=== PATIENT | male | born 1940 | race Caucasian/White ===

== ENCOUNTER → 2016-08-08 | Outpatient (CLI) | payer BC ==
[~2016-08-08] MED LIST: ADVINUNK INH; ALBUAER2 INH; AMLO2.5T PO; ASPEC81 PO; ATOR-22 PO; CLOP1TAB15 PO; DVN80 PO; ESCI1TAB10 PO; PRLSR20 PO
== END | disposition home or self-care (01) ==
LOC: C.LABMFLN 11:47
PROVIDERS: ATTEND Family Medicine
DX: R05 Cough (principal)

== ENCOUNTER → 2016-08-22 | Outpatient (CLI) | payer BC ==
[2016-08-22 13:39] LABS: ALT/SGPT 10 U/L (12-78); BLOOD UREA NITROGEN 25 mg/dl (7-18); BUN/CREATININE RATIO 15.4 (10-20); CALCIUM 8.5 mg/dl (8.5-10.1); CARBON DIOXIDE 30 mmol/L (21-32); CHLORIDE 107 mmol/L (98-107); GLUCOSE 89 mg/dl (70-99); POTASSIUM 4.1 mmol/L (3.5-5.1); SODIUM 144 mmol/L (136-145); URIC ACID 4.9 mg/dl (2.6-7.2)
[2016-08-22 13:42] LABS: CHOLESTEROL 111 mg/dl (0-200); CHOLESTEROL/HDL RATIO 2.5; HDL CHOLESTEROL 45 mg/dl; LDL CHOLESTEROL CALCULATED 55 mg/dl; TRIGLYCERIDES 53 mg/dl (0-150); VERY LOW DENSITY LIPOPROT CALC 11 mg/dl
== END | disposition home or self-care (01) ==
LOC: C.LABMFLN 08:30
PROVIDERS: ATTEND Family Medicine
DX: M79.89 Other specified soft tissue disorders (principal); E78.00 Pure hypercholesterolemia, unspecified; I12.9 Hypertensive chronic kidney disease with stage 1 through stage 4 chronic kidney disease, or unspecified chronic kidney disease; N18.3 Chronic kidney disease, stage 3 (moderate)

== ENCOUNTER → 2016-10-10 | Outpatient (CLI) | payer BC ==
[2016-10-10 13:24] LABS: BASO % 0.3 %; BASO ABS # 0.02 K/uL (0-0.2); COMPLETE YES; EOS % 3.1 %; HEMATOCRIT 32.7 % (42-52); IG% 0.3 %; LYMPH % 18.1 %; LYMPH ABS # 1.34 K/uL (1.2-3.4); MEAN CELL VOLUME 97.6 fL (80-100); MEAN CORPUSCULAR HEMOGLOBIN 31.6 pg (25-34); MEAN CORPUSCULAR HGB CONC 32.4 g/dl (32-36); MEAN PLATELET VOLUME 10.6 fL (7.4-10.4); MONO % 9.7 %; NEUT % 68.5 %; PLATELET COUNT 190 K/uL (130-400); RED BLOOD COUNT 3.35 M/uL (4.7-6.1); WHITE BLOOD COUNT 7.39 K/uL (4.8-10.8)
[2016-10-10 13:25] LABS: TOTAL IRON BINDING CAPACITY 179 mcg/dl (250-450)
--- NOTE | 2016-10-15 12:59 | CODING QUERY MEDICAL NECESSITY ---
SUPPORTING DIAGNOSIS NEEDED A supporting diagnosis is required for the test/procedure performed on this patient in order for us to be reimbursed by the patient's insurance. Please provide a supporting diagnosis for the following test/procedure listed below next to the test name along with your signature. *If there is no additional diagnosis for this patient that would support the following test/procedure please document that below next to the test/procedure. Test(s)/Procedure(s) that require a supporting diagnosis: DOS 10/10 * Vitamin B12 DIAGNOSIS: Provider Signature: Date: Thank you Ariana Jones [facility] Information Management Once completed, please kindly fax back to [phone] For questions please call [phone]
== END | disposition home or self-care (01) ==
LOC: C.LABMFLN 09:31
PROVIDERS: ATTEND Family Medicine
DX: D64.9 Anemia, unspecified (principal); E53.8 Deficiency of other specified B group vitamins

== ENCOUNTER → 2016-12-25 | Outpatient (CLI) | payer BC ==
[2016-12-25 18:16] LABS: HEMATOCRIT 33.2 % (42-52)
[2016-12-25 19:16] LABS: ALT/SGPT 13 U/L (12-78); BLOOD UREA NITROGEN 22 mg/dl (7-18); BUN/CREATININE RATIO 13.9 (10-20); CARBON DIOXIDE 28 mmol/L (21-32); CHLORIDE 107 mmol/L (98-107); GLUCOSE 89 mg/dl (70-99); POTASSIUM 4.6 mmol/L (3.5-5.1); SODIUM 144 mmol/L (136-145)
[2016-12-25 19:26] LABS: ALB/GLOB RATIO 0.8 (0.9-2); ALKALINE PHOSPHATASE 74 U/L (45-117); AST/SGOT 11 U/L (15-37); THYROID STIMULATING HORMONE 0.985 uIu/ml (0.300-4.500)
[2016-12-25 19:39] LABS: CALCIUM 8.5 mg/dl (8.5-10.1)
== END | disposition home or self-care (01) ==
LOC: C.LABMFLN 14:57
PROVIDERS: ATTEND Family Medicine
DX: I12.9 Hypertensive chronic kidney disease with stage 1 through stage 4 chronic kidney disease, or unspecified chronic kidney disease (principal); N18.3 Chronic kidney disease, stage 3 (moderate); R60.9 Edema, unspecified; I50.9 Heart failure, unspecified; D64.9 Anemia, unspecified

== ENCOUNTER → 2017-01-14 | Outpatient (CLI) | payer BC ==
[2017-01-14 15:17] LABS: BLOOD UREA NITROGEN 42 mg/dl (7-18); BUN/CREATININE RATIO 20.1 (10-20); CARBON DIOXIDE 27 mmol/L (21-32); CHLORIDE 109 mmol/L (98-107); GLUCOSE 97 mg/dl (70-99); POTASSIUM 4.4 mmol/L (3.5-5.1); SODIUM 144 mmol/L (136-145)
== END | disposition home or self-care (01) ==
LOC: C.LABMFLN 10:01
PROVIDERS: ATTEND Family Medicine
DX: I50.9 Heart failure, unspecified (principal)

== ENCOUNTER → 2017-03-13 | Outpatient (CLI) | payer BC ==
[2017-03-13 18:34] LABS: BASO % 0.2 %; BASO ABS # 0.01 K/uL (0-0.2); COMPLETE YES; EOS % 7.2 %; HEMATOCRIT 30.2 % (42-52); IG% 0.2 %; LYMPH % 19.1 %; LYMPH ABS # 1.15 K/uL (1.2-3.4); MEAN CELL VOLUME 97.1 fL (80-100); MEAN CORPUSCULAR HEMOGLOBIN 32.5 pg (25-34); MEAN CORPUSCULAR HGB CONC 33.4 g/dl (32-36); MEAN PLATELET VOLUME 10.6 fL (7.4-10.4); MONO % 6.7 %; NEUT % 66.6 %; PLATELET COUNT 157 K/uL (130-400); RED BLOOD COUNT 3.11 M/uL (4.7-6.1); WHITE BLOOD COUNT 6.01 K/uL (4.8-10.8)
[2017-03-13 19:34] LABS: BLOOD UREA NITROGEN 149 mg/dl (7-18); BUN/CREATININE RATIO 32.4 (10-20); CALCIUM 8.6 mg/dl (8.5-10.1); CARBON DIOXIDE 23 mmol/L (21-32); CHLORIDE 107 mmol/L (98-107); GLUCOSE 122 mg/dl (70-99); POTASSIUM 5.5 mmol/L (3.5-5.1); SODIUM 137 mmol/L (136-145)
--- NOTE | 2017-03-17 12:31 | CODING QUERY MEDICAL NECESSITY ---
CQSUPPORTING DIAGNOSIS NEEDED A supporting diagnosis is required for the test/procedure performed on this patient in order for us to be reimbursed by the patient's insurance. Please provide a supporting diagnosis for the following test/procedure listed below next to the test name along with your signature. *If there is no additional diagnosis for this patient that would support the following test/procedure please document that below next to the test/procedure. Test(s)/Procedure(s) that require a supporting diagnosis: DOS 03/13/17 VITAMIN D TEST Provider Signature: Date: Thank you Shannon Benítez [facility] Information Management Once completed, please kindly fax back to [phone] For questions please call [phone]
== END | disposition home or self-care (01) ==
LOC: C.LABMFLN 15:21
PROVIDERS: ATTEND Family Medicine
DX: I10 Essential (primary) hypertension (principal); D64.9 Anemia, unspecified; Z86.79 Personal history of other diseases of the circulatory system; E03.8 Other specified hypothyroidism; R53.83 Other fatigue; E55.9 Vitamin D deficiency, unspecified

== ENCOUNTER → 2017-03-20 | Outpatient (CLI) | payer BC ==
[2017-03-20 18:16] LABS: MEAN CELL VOLUME 97.4 fL (80-100); MEAN CORPUSCULAR HGB CONC 33.8 g/dl (32-36); MEAN PLATELET VOLUME 10.7 fL (7.4-10.4); PLATELET COUNT 127 K/uL (130-400); RED BLOOD COUNT 2.67 M/uL (4.7-6.1); WHITE BLOOD COUNT 5.27 K/uL (4.8-10.8)
[2017-03-20 18:36] LABS: BLOOD UREA NITROGEN 74 mg/dl (7-18); BUN/CREATININE RATIO 27.3 (10-20); CALCIUM 8.6 mg/dl (8.5-10.1); CARBON DIOXIDE 22 mmol/L (21-32); CHLORIDE 115 mmol/L (98-107); GLUCOSE 116 mg/dl (70-99); SODIUM 143 mmol/L (136-145)
== END | disposition home or self-care (01) ==
LOC: C.LABMFLN 14:27
PROVIDERS: ATTEND Family Medicine
DX: N18.4 Chronic kidney disease, stage 4 (severe) (principal); D64.9 Anemia, unspecified

== ENCOUNTER → 2017-06-23 | Outpatient (CLI) | payer BC ==
[2017-06-23 18:30] LABS: HEMATOCRIT 34.7 % (42-52); MEAN CELL VOLUME 100.9 fL (80-100); MEAN CORPUSCULAR HEMOGLOBIN 31.7 pg (25-34); MEAN CORPUSCULAR HGB CONC 31.4 g/dl (32-36); MEAN PLATELET VOLUME 10.9 fL (7.4-10.4); PLATELET COUNT 223 K/uL (130-400); RED BLOOD COUNT 3.44 M/uL (4.7-6.1); WHITE BLOOD COUNT 6.68 K/uL (4.8-10.8)
[2017-06-23 18:34] LABS: ALT/SGPT 7 U/L (12-78); BLOOD UREA NITROGEN 37 mg/dl (7-18); BUN/CREATININE RATIO 14.2 (10-20); CALCIUM 9.6 mg/dl (8.5-10.1); CARBON DIOXIDE 28 mmol/L (21-32); CHLORIDE 103 mmol/L (98-107); CHOLESTEROL 136 mg/dl (0-200); CHOLESTEROL/HDL RATIO 3.2; CREATININE 2.58 mg/dl (0.60-1.40); GLUCOSE 116 mg/dl (70-99); HDL CHOLESTEROL 42 mg/dl; LDL CHOLESTEROL CALCULATED 75 mg/dl; POTASSIUM 4.8 mmol/L (3.5-5.1); SODIUM 140 mmol/L (136-145); TRIGLYCERIDES 96 mg/dl (0-150); URIC ACID 6.6 mg/dl (2.6-7.2); VERY LOW DENSITY LIPOPROT CALC 19 mg/dl
== END | disposition home or self-care (01) ==
LOC: C.LABMFLN 15:56
PROVIDERS: ATTEND Family Medicine
DX: D50.9 Iron deficiency anemia, unspecified (principal); E87.0 Hyperosmolality and hypernatremia; M10.9 Gout, unspecified; E78.00 Pure hypercholesterolemia, unspecified

== ENCOUNTER → 2017-07-08 | Outpatient (CLI) | payer BC ==
[2017-07-08 18:25] LABS: BASO % 0.3 %; BASO ABS # 0.02 K/uL (0-0.2); COMPLETE YES; EOS % 2.2 %; HEMATOCRIT 35.3 % (42-52); IG% 0.4 %; LYMPH ABS # 1.47 K/uL (1.2-3.4); MEAN CELL VOLUME 100.6 fL (80-100); MEAN CORPUSCULAR HGB CONC 32.9 g/dl (32-36); MEAN PLATELET VOLUME 10.8 fL (7.4-10.4); MONO % 9.2 %; NEUT % 68.9 %; PLATELET COUNT 250 K/uL (130-400); RED BLOOD COUNT 3.51 M/uL (4.7-6.1); WHITE BLOOD COUNT 7.75 K/uL (4.8-10.8)
[2017-07-08 18:37] LABS: ALT/SGPT 7 U/L (12-78); AST/SGOT 6 U/L (15-37); BLOOD UREA NITROGEN 68 mg/dl (7-18); BUN/CREATININE RATIO 18.4 (10-20); CALCIUM 9.5 mg/dl (8.5-10.1); CARBON DIOXIDE 28 mmol/L (21-32); CHLORIDE 106 mmol/L (98-107); CREATININE 3.68 mg/dl (0.60-1.40); GLUCOSE 132 mg/dl (70-99); POTASSIUM 4.1 mmol/L (3.5-5.1); SODIUM 143 mmol/L (136-145)
[2017-07-08 18:38] LABS: ALB/GLOB RATIO 0.5 (0.9-2); ALKALINE PHOSPHATASE 73 U/L (45-117)
[2017-07-08 18:48] LABS: URINE APPEARANCE TURBID (CLEAR); URINE BILIRUBIN NEG (NEG); URINE COLOR DK YELLOW; URINE EPITHELIAL CELL AUTO >30 /lpf (0-5); URINE NITRITE NEG (NEG); URINE SPECIFIC GRAVITY 1.022 (1.000-1.030); UROBILINOGEN NEG (NEG)
[2017-07-08 18:54] LABS: MANUAL MICROSCOPIC REQUIRED? NO; REVIEW REQ? YES
[2017-07-08 19:02] LABS: ZZUR CULT IF INDIC CLEAN CATCH YES
== END | disposition home or self-care (01) ==
LOC: C.LABMFLN 10:56
PROVIDERS: ATTEND Family Medicine
DX: F99 Mental disorder, not otherwise specified (principal)